=== PATIENT | female | born 1955 | race Two or more races ===

== ENCOUNTER 2017-02-12 14:13 | Inpatient (IN) | payer OTHER ==
[~2017-02-12] VITALS: Ht 162.6 cm; Wt 46.8 kg
--- NOTE | 2017-02-12 14:40 | NUR ---
PT BIB FOR MEDICAL CLEARANE AND POSSIBLE ADMIT TO [facility]. PER FAMILY HAS BECAME MORE AGGRESSIVE AND PSCHYCHOTIC RECENTLY AND CAN NOT BE HANDLED IN THE [facility].
--- NOTE | 2017-02-12 14:42 | NUR ---
DR MATT AT THE BEDSIDE FOR EVAL AND EXAM.
--- NOTE | 2017-02-12 15:10 | NUR ---
PT WAS AGGRESSIVE TOWARD STAFF, ENTRY ANALYST WAS NOT ABLE TO DRAW BLOOD. AWARE.
[2017-02-12] MEDS ORDERED: MULT1TAB11 PO (15:20)
[2017-02-12] MEDS ORDERED: LEVO75TA PO (15:20)
[2017-02-12] MEDS ORDERED: CALC-957 PO (15:20)
[2017-02-12] MEDS ORDERED: RISP1TAB27 PO (15:20)
[2017-02-12] MEDS ORDERED: CHOL100045 PO (15:20)
[2017-02-12] MEDS ORDERED: DIVA250T PO (15:20)
[2017-02-12] MEDS ORDERED: TRAZ150T75 PO (15:20)
--- NOTE | 2017-02-12 16:33 | NUR ---
ATTEMPTED TO DRAW LABS AND COLLECT URINE BUT PT BECOME AGITATED AND CONTRACT BLE AND BUE MAKING IT IMPOSSIBLE.
--- NOTE | 2017-02-12 16:44 | NUR ---
VINI NEWSOME FROM PET AT THE BEDSIDE FOR PSYCH EVAL .
--- NOTE | 2017-02-12 17:00 | NUR ---
[facility] COLEECTED AND SENT TO LAB, BELONGING LIST COMPLETED.
[2017-02-12] MEDS ORDERED: MAGNESIUM HYDROXIDE 30 ML LIQUID UDC PO PRN (18:00)
[2017-02-12] MEDS ORDERED: MAG HYDROX/AL HYDROX/SIMETH 30 ML LIQUID UDC PO PRN (18:00)
--- NOTE | 2017-02-12 19:27 | NUR ---
1345 Admit patient to [facility] from ER per isis placed on 5150 for danger to others and gravely disabled struck resident from the SNF. Upon admission patient is combative, agitated and aggressive. Admission care done. Dr. Pitt and Dr. Tomas notified of the admission.notified of the admission
[2017-02-12] MEDS: ACETAMINOPHEN 325 MG TABLET PO PRN (20:16)
[2017-02-12] MEDS: TEMAZEPAM 7.5 MG CAPSULE PO PRN (20:16)
[2017-02-12 20:17] VITALS: BP 117/70
[2017-02-12] MEDS ORDERED: OLANZAPINE ZYDIS 5 MG TAB.RAPDIS PO SCH (21:00)
--- NOTE | 2017-02-12 22:00 | NUR ---
received to care, up in travis chair, appearing restless, and anxious. PO fluids ,and snack given. PRN restoril was given at 2015, and, as of 2199, she remains awake. assisted with PM care, and diaper change. pt required 3 staff to change her, as she is resistive to care. currently up in travis chair, at nurses station. no distress noted. will continue to monitor closely.
[2017-02-12] MEDS: LORAZEPAM 0.5 MG TABLET PO PRN (23:10)
--- NOTE | 2017-02-12 23:10 | NUR ---
remains awake, and restless. PRN ativan was given, at this time.
--- NOTE | 2017-02-12 23:50 | NUR ---
appears calmer, now. assisted to bed, with bed alarm, on.
--- NOTE | 2017-02-13 00:15 | NUR ---
appears to be asleep. no distress noted. will continue to monitor closely.
[2017-02-13] MEDS: ACETAMINOPHEN 325 MG TABLET PO PRN (05:23)
[2017-02-13] MEDS: LORAZEPAM 0.5 MG TABLET PO PRN (05:23)
--- NOTE | 2017-02-13 05:23 | NUR ---
pt slept 1.5 hours, total. remains restless. PRN ativan was given, at this time.
[2017-02-13] MEDS ORDERED: LEVOTHYROXINE SODIUM 75 MCG TABLET PO SCH ×2 (07:24→09:00)
[2017-02-13 07:30] VITALS: BP 124/79
[2017-02-13 07:57] LABS: THYROID STIMULATING HORMONE 15.043 mIU/mL (0.358-3.740)
[2017-02-13 08:24] LABS: BILIRUBIN,TOTAL 0.3 mg/dL (0.2-1.0); CREATININE 0.9 mg/dL (0.6-1.3); PHOSPHOROUS 3.2 mg/dL (2.5-4.9); POTASSIUM 3.9 mmol/L (3.5-5.1); TOTAL PROTEIN, SERUM 6.9 g/dL (6.4-8.2)
[2017-02-13] MEDS ORDERED: Medication Not On Formulary EA (Multivitamins W-Minerals (Multivitamin With Minerals) 1 PO SCH (09:00)
[2017-02-13] MEDS: CHOLECALCIFEROL 1,000 UNIT TABLET PO SCH (09:29)
[2017-02-13] MEDS: CALCIUM CARB/VITAMIN D 600-400 MG TABLET PO SCH ×2 (09:29→17:39)
[2017-02-13] MEDS: MULTIVIT, IRON, MIN NO. 8, FA TABLET PO SCH (09:29)
[2017-02-13 15:00] VITALS: BP 106/73
--- NOTE | 2017-02-13 16:27 | NUR ---
Initial discharge instructions: The patient resides at [facility] [[address] , [place] [address] ]. ITZ has called the facility and left a message for admissions to see if they will be accepting the patient back upon discharge. ITZ spoke with the patient's who stated that he would like for the patient to return to the facility upon discharge. ITZ will speak with the family and MD regarding the most appropriate discharge plan. SS will form a safe and proper discharge.
[2017-02-13] MEDS: DIVALPROEX SPRINKLE 125 MG CAP.SPRINK PO SCH (17:39)
[2017-02-13] MEDS: BENZTROPINE MESYLATE 0.5 MG TABLET PO SCH (17:39)
[2017-02-13] MEDS: risperiDONE-M 0.5 MG TAB.RAPDIS PO SCH (17:39)
[2017-02-13 20:36] VITALS: BP 120/89
[2017-02-14 07:30] VITALS: BP 100/52
[2017-02-14 07:43] LABS: BASOPHILS % (AUTO) 0.6 % (0.0-2.0); EOSINOPHILS # (AUTO) 0.2 K/uL (0.0-0.7); EOSINOPHILS % (AUTO) 2.7 % (0.0-7.0); HEMATOCRIT 38.7 % (37-47); HEMOGLOBIN 13.2 G/DL (12.0-16.0); LYMPHOCYTES # (AUTO) 1.9 K/UL (0.8-4.8); LYMPHOCYTES % (AUTO) 26.9 % (20.5-51.5); MEAN CORPUSCULAR HEMOGLOBIN 30.9 UUG (27.0-31.0); MEAN CORPUSCULAR HGB CONC 34 g/dL (32.0-37.0); MEAN CORPUSCULAR VOLUME 90.7 FL (81.0-99.0); MONOCYTES # (AUTO) 1.1 K/UL (0.1-1.30); MONOCYTES % (AUTO) 15.9 % (0.0-11.0); NEUTROPHILS # (AUTO) 3.8 K/UL (1.8-8.9); NEUTROPHILS % (AUTO) 53.9 % (38.5-71.5); PLATELET COUNT (AUTO) 208 K/UL (150-450); RED BLOOD CELL COUNT(AUTO) 4.27 MIL/UL (4.2-5.4)
[2017-02-14 07:55] LABS: BILIRUBIN,TOTAL 0.4 mg/dL (0.2-1.0); CREATININE 0.8 mg/dL (0.6-1.3); MAGNESIUM 2.2 mg/dL (1.8-2.4); POTASSIUM 5.2 mmol/L (3.5-5.1); TOTAL PROTEIN, SERUM 6.7 g/dL (6.4-8.2)
[2017-02-14 08:08] LABS: THYROID STIMULATING HORMONE 8.76 mIU/mL (0.358-3.740)
[2017-02-14 08:54] LABS: EOSINOPHILS % (MANUAL) 2 % (0-8); LYMPHOCYTES % (MANUAL) 24 % (20-40); MONOCYTES % (MANUAL) 12 % (2-10); NEUTROPHILS % (MANUAL) 62 % (42-75)
[2017-02-14] MEDS: MULTIVIT, IRON, MIN NO. 8, FA TABLET PO SCH (11:58)
[2017-02-14] MEDS: CALCIUM CARB/VITAMIN D 600-400 MG TABLET PO SCH ×2 (11:58→16:53)
[2017-02-14] MEDS: risperiDONE-M 0.5 MG TAB.RAPDIS PO SCH ×3 (11:58→16:53)
[2017-02-14] MEDS: DIVALPROEX SPRINKLE 125 MG CAP.SPRINK PO SCH ×3 (11:58→16:53)
[2017-02-14] MEDS: CHOLECALCIFEROL 1,000 UNIT TABLET PO SCH (11:58)
[2017-02-14] MEDS: BENZTROPINE MESYLATE 0.5 MG TABLET PO SCH ×2 (11:59→16:53)
--- NOTE | 2017-02-14 14:18 | NUR ---
UR Note: ITZ spoke with IPA: CARLOS ESPINAL PH: [phone] FAX # [phone] Authorization : [id number] / 7 DAYS APPROVED from admission.
[2017-02-14 15:00] VITALS: BP 113/67
[2017-02-14 20:57] VITALS: BP 107/84
[2017-02-15] MEDS: LEVOTHYROXINE SODIUM 88 MCG TABLET PO SCH (06:11)
--- NOTE | 2017-02-15 06:49 | NUR ---
GPS: PATIENT REMAIN CALM AND COOPERATIVE. SLEPT 7 HRS THROUGH THE NIGHT. COMPLIANT WITH AM PO MEDS. SHOWERED THIS MORNING. PATIENT RESISTIVE TO CARE WHILE GIVING SHOWER THIS MORNING. CONTINUE PLAN OF CARE.
[2017-02-15 07:30] VITALS: BP 112/64
[2017-02-15] MEDS: LORAZEPAM 0.5 MG TABLET PO PRN (08:20)
[2017-02-15] MEDS: CHOLECALCIFEROL 1,000 UNIT TABLET PO SCH (08:51)
[2017-02-15] MEDS: CALCIUM CARB/VITAMIN D 600-400 MG TABLET PO SCH ×2 (08:51→16:12)
[2017-02-15] MEDS: risperiDONE-M 0.5 MG TAB.RAPDIS PO SCH ×3 (08:51→16:12)
[2017-02-15] MEDS: BENZTROPINE MESYLATE 0.5 MG TABLET PO SCH ×2 (08:51→16:12)
[2017-02-15] MEDS: MULTIVIT, IRON, MIN NO. 8, FA TABLET PO SCH (08:51)
[2017-02-15] MEDS: DIVALPROEX SPRINKLE 125 MG CAP.SPRINK PO SCH ×3 (08:51→16:12)
[2017-02-15 16:35] VITALS: BP 99/65
[2017-02-15] MEDS: ACETAMINOPHEN 325 MG TABLET PO PRN (16:43)
[2017-02-15 20:59] VITALS: BP 119/74
--- NOTE | 2017-02-16 06:33 | NUR ---
Patient slept 7 hrs through the night. She continue resisting care. She kicked and attempted to scratch staff while providing care. Verbal redirection given x 3 yet ineffective. Continue non-verbal. we will continue to monitor.
[2017-02-16] MEDS: LEVOTHYROXINE SODIUM 88 MCG TABLET PO SCH (06:47)
[2017-02-16 07:47] LABS: BASOPHILS % (AUTO) 0.7 % (0.0-2.0); EOSINOPHILS # (AUTO) 0.3 K/uL (0.0-0.7); EOSINOPHILS % (AUTO) 4.8 % (0.0-7.0); HEMATOCRIT 39.6 % (37-47); LYMPHOCYTES # (AUTO) 2.2 K/UL (0.8-4.8); LYMPHOCYTES % (AUTO) 37.2 % (20.5-51.5); MEAN CORPUSCULAR HGB CONC 33 g/dL (32.0-37.0); MEAN CORPUSCULAR VOLUME 91.3 FL (81.0-99.0); MONOCYTES # (AUTO) 0.9 K/UL (0.1-1.30); MONOCYTES % (AUTO) 14.9 % (0.0-11.0); NEUTROPHILS # (AUTO) 2.6 K/UL (1.8-8.9); NEUTROPHILS % (AUTO) 42.4 % (38.5-71.5); PLATELET COUNT (AUTO) 235 K/UL (150-450); RED BLOOD CELL COUNT(AUTO) 4.34 MIL/UL (4.2-5.4)
[2017-02-16 07:54] LABS: BILIRUBIN,TOTAL 0.4 mg/dL (0.2-1.0); CREATININE 0.9 mg/dL (0.6-1.3); POTASSIUM 5.7 mmol/L (3.5-5.1); TOTAL PROTEIN, SERUM 6.9 g/dL (6.4-8.2)
[2017-02-16] MEDS: LORAZEPAM 0.5 MG TABLET PO PRN ×3 (08:15→22:56)
[2017-02-16] MEDS ORDERED: SODIUM POLYSTYRENE SULFONATE 15 G/60 ML LIQUID UDC PO ONE (08:30)
[2017-02-16] MEDS: MULTIVIT, IRON, MIN NO. 8, FA TABLET PO SCH (09:24)
[2017-02-16] MEDS: BENZTROPINE MESYLATE 0.5 MG TABLET PO SCH ×2 (09:24→16:38)
[2017-02-16] MEDS: DIVALPROEX SPRINKLE 125 MG CAP.SPRINK PO SCH ×3 (09:24→16:38)
[2017-02-16] MEDS: CHOLECALCIFEROL 1,000 UNIT TABLET PO SCH (09:24)
[2017-02-16] MEDS: risperiDONE-M 0.5 MG TAB.RAPDIS PO SCH ×3 (09:24→16:38)
[2017-02-16] MEDS: CALCIUM CARB/VITAMIN D 600-400 MG TABLET PO SCH ×2 (09:24→16:38)
--- NOTE | 2017-02-16 14:37 | NUR ---
GPS: Nursing Notes: Destructive Behavior Toward Others: Patient is awake and responding to her name by looking when calling her name, selectively mute, paranoid behavior, angry affect, striking out at staff when assisting her with ADL's, refused to eat her lunch, throw her tray at staff, poor impulse control, poor anger management, episodes of scratching and kicking staff when changing her wet diaper, redirected and reoriented, but unable to understand, continue to be aggressive when helping her with ADL's, unable to formulate a plan for self care, continue with treatment plan.
[2017-02-16 16:00] VITALS: BP 118/82
[2017-02-16 20:00] VITALS: BP 126/80
--- NOTE | 2017-02-16 22:57 | NUR ---
GPS: PATIENT IS VERY AGITATED BANGING ON SIDE TABLE. ATIVAN 0.5 MG PO GIVEN.
--- NOTE | 2017-02-16 23:58 | NUR ---
GPS: PATIENT IS CALM NOW. PRN EFFECTIVE FOR ANXIETY.
[2017-02-17] MEDS: LEVOTHYROXINE SODIUM 88 MCG TABLET PO SCH (06:06)
--- NOTE | 2017-02-17 06:11 | NUR ---
GPS: REMAIN COOPERATIVE WITH MEDS. RESISTIVE TO CARE WHILE PROVIDED ADL'S. SLEPT 7 HRS THROUGH THE NIGHT.CONTINUE MONITOR FOR SAFETY.
[2017-02-17 07:50] VITALS: BP 130/87
[2017-02-17] MEDS: risperiDONE-M 0.5 MG TAB.RAPDIS PO SCH ×3 (08:48→16:31)
[2017-02-17] MEDS: LORAZEPAM 0.5 MG TABLET PO PRN (08:48)
[2017-02-17] MEDS: CALCIUM CARB/VITAMIN D 600-400 MG TABLET PO SCH ×2 (08:48→16:31)
[2017-02-17] MEDS: DIVALPROEX SPRINKLE 125 MG CAP.SPRINK PO SCH ×3 (08:48→16:31)
[2017-02-17] MEDS: MULTIVIT, IRON, MIN NO. 8, FA TABLET PO SCH (08:48)
[2017-02-17] MEDS: BENZTROPINE MESYLATE 0.5 MG TABLET PO SCH ×3 (08:48→16:31)
[2017-02-17] MEDS: CHOLECALCIFEROL 1,000 UNIT TABLET PO SCH (08:48)
[2017-02-17] MEDS ORDERED: MAGNESIUM HYDROXIDE 30 ML LIQUID UDC PO ONE (11:00)
[2017-02-17] MEDS: DOCUSATE SODIUM 100 MG CAPSULE PO SCH ×2 (11:14→21:08)
[2017-02-17] MEDS ORDERED: BISACODYL 10 MG SUPP.RECT RC PRN (15:30)
--- NOTE | 2017-02-17 16:32 | NUR ---
UR Note: ITZ faxed most recent clinicals to [facility]INAL PH: [phone] FAX # [phone] Authorization : [id number]
[2017-02-17 16:44] VITALS: BP 115/73
[2017-02-17] MEDS: TEMAZEPAM 7.5 MG CAPSULE PO PRN (21:09)
[2017-02-17 21:27] VITALS: BP 114/71
--- NOTE | 2017-02-17 22:00 | NUR ---
received to care, up in travis chair, appearing restless, at times, in no acute distress. compliant with medications, care rendered, toileting, food, and fluids. PRN restoril was given at 2108, along with PRN milk of magnesia. as of 2199, she is asleep, in bed. no distress noted. will continue to monitor closely.
--- NOTE | 2017-02-18 06:00 | NUR ---
slept 7 hours, total. continues to sleep. easy to awaken. no distress noted.
[2017-02-18] MEDS: LEVOTHYROXINE SODIUM 88 MCG TABLET PO SCH (06:31)
[2017-02-18 07:30] VITALS: BP 111/65
[2017-02-18] MEDS: CALCIUM CARB/VITAMIN D 600-400 MG TABLET PO SCH ×2 (08:28→16:53)
[2017-02-18] MEDS: DOCUSATE SODIUM 100 MG CAPSULE PO SCH ×2 (08:28→21:00)
[2017-02-18] MEDS: BENZTROPINE MESYLATE 0.5 MG TABLET PO SCH ×3 (08:28→16:53)
[2017-02-18] MEDS: DIVALPROEX SPRINKLE 125 MG CAP.SPRINK PO SCH ×3 (08:28→16:52)
[2017-02-18] MEDS: MULTIVIT, IRON, MIN NO. 8, FA TABLET PO SCH (08:28)
[2017-02-18] MEDS: CHOLECALCIFEROL 1,000 UNIT TABLET PO SCH (08:28)
[2017-02-18] MEDS: risperiDONE-M 0.5 MG TAB.RAPDIS PO SCH ×3 (08:28→16:53)
[2017-02-18] MEDS: LORAZEPAM 0.5 MG TABLET PO PRN (12:28)
[2017-02-18 15:27] VITALS: BP_SYST 113; BP_SYST 114; BP_DIAS 71; BP_DIAS 72
--- NOTE | 2017-02-18 16:22 | NUR ---
UR Note: ITZ faxed most recent clinicals to CARL[facility] ESPINAL PH: [phone] FAX # [phone] Authorization : [id number]
[2017-02-18 20:00] VITALS: BP 101/63
--- NOTE | 2017-02-18 21:05 | NUR ---
PT RECEIVED ON HER BED SLEEPING,NO DISTRESS NOTED, UNABLE TO ASSESS BEHAVIOR AT THIS TIME, WILL CONTINUE TO MONITOR.
[2017-02-19] MEDS: TEMAZEPAM 7.5 MG CAPSULE PO PRN (02:03)
[2017-02-19] MEDS: LORAZEPAM 0.5 MG TABLET PO PRN (04:15)
[2017-02-19] MEDS: LEVOTHYROXINE SODIUM 88 MCG TABLET PO SCH (06:46)
--- NOTE | 2017-02-19 06:58 | NUR ---
pt had very large bowel movement this AM, Dulcolax supp. was effective., Also showered, PT remains very resistive to care, will continue to monitor closely.
[2017-02-19 07:30] VITALS: BP 123/69
[2017-02-19 08:22] LABS: CREATININE 0.7 mg/dL (0.6-1.3); POTASSIUM 4.8 mmol/L (3.5-5.1)
[2017-02-19] MEDS: risperiDONE-M 0.5 MG TAB.RAPDIS PO SCH ×3 (08:58→18:03)
[2017-02-19] MEDS: DOCUSATE SODIUM 100 MG CAPSULE PO SCH ×2 (08:59→20:52)
[2017-02-19] MEDS: CALCIUM CARB/VITAMIN D 600-400 MG TABLET PO SCH ×2 (08:59→18:03)
[2017-02-19] MEDS: DIVALPROEX SPRINKLE 125 MG CAP.SPRINK PO SCH ×3 (08:59→18:04)
[2017-02-19] MEDS: MULTIVIT, IRON, MIN NO. 8, FA TABLET PO SCH (08:59)
[2017-02-19] MEDS: CHOLECALCIFEROL 1,000 UNIT TABLET PO SCH (08:59)
[2017-02-19] MEDS: BENZTROPINE MESYLATE 0.5 MG TABLET PO SCH ×3 (08:59→18:04)
--- NOTE | 2017-02-19 09:52 | NUR ---
RECEIVED PATIENT UP IN [facility] AND SELECTIVELY MUTE WITH A BLANK SANDRA. PATIENT REFUSED LAB S TO BE DRAWN AFTER TWO TRYS, WHILE HOLDING PATIENT SHE ATTEMPTED TO SCRATCH STAFF , PATIENT INCONTINENT OF STOOL FIGHTING NOT TOO NOT GET OUT OF CHAIR TO BE CHANGED ANSD CLEANED SCRATCHING AT STAFF , PULLIMG AWAY NOT ACCEPTING HELP WITH SAFETY MEASURES , PT DRIED AND CLEANED WITH RESISTENCE. CONTINUE TO PROVIDE A SAFE AND CLEAN AREA FOR PATIENT
[2017-02-19] MEDS: QUETIAPINE FUMARATE 25 MG TABLET PO SCH ×3 (12:42→13:11)
[2017-02-19] MEDS: OLANZAPINE ZYDIS 5 MG TAB.RAPDIS PO SCH ×2 (14:02→20:53)
--- NOTE | 2017-02-19 14:20 | NUR ---
UR Note: ITZ faxed most recent clinicals to Nanda ESPINAL [PH: [phone] FAX # [phone]]. Spoke with JING SOOD who stated that the patient has been authorized through 02/22/17 with review due on 02/21/17. Authorization: [id number]
[2017-02-19 16:00] VITALS: BP 123/68
[2017-02-19] MEDS ORDERED: QUETIAPINE FUMARATE 25 MG TABLET PO SCH (17:00)
--- NOTE | 2017-02-19 18:31 | NUR ---
patient still with unpredictable behavior in travis chair all shift, now in dayroom being fed by appeared less anxiuous continue to monitor for safety
[2017-02-19 19:58] VITALS: BP 102/60
[2017-02-19] MEDS ORDERED: ENOXAPARIN SODIUM 40 MG/0.4 ML DISP.SYRIN SQ SCH (22:00)
--- NOTE | 2017-02-19 22:01 | NUR ---
PT RECIEVED IN HER ROOM SLEEPING, NO DISTRESS NOTED, UNABLE TO GIVE BEDTIME MEDS, WILL CONTINUE TO MONITOR CLOSELY.
[2017-02-20] MEDS: LEVOTHYROXINE SODIUM 88 MCG TABLET PO SCH (07:04)
[2017-02-20] MEDS: PANTOPRAZOLE SODIUM 40 MG TABLET.DR PO SCH (07:04)
[2017-02-20] MEDS ORDERED: PANTOPRAZOLE SODIUM 40 MG TABLET.DR PO ONE (07:10)
[2017-02-20 07:30] VITALS: BP 125/73
[2017-02-20] MEDS: MULTIVIT, IRON, MIN NO. 8, FA TABLET PO SCH (09:00)
[2017-02-20] MEDS: risperiDONE-M 0.5 MG TAB.RAPDIS PO SCH ×2 (09:00→13:33)
[2017-02-20] MEDS: CALCIUM CARB/VITAMIN D 600-400 MG TABLET PO SCH ×2 (09:00→17:08)
[2017-02-20] MEDS: BENZTROPINE MESYLATE 0.5 MG TABLET PO SCH ×2 (09:00→13:33)
[2017-02-20] MEDS: CHOLECALCIFEROL 1,000 UNIT TABLET PO SCH (09:00)
[2017-02-20] MEDS: DOCUSATE SODIUM 100 MG CAPSULE PO SCH ×2 (09:00→20:14)
[2017-02-20] MEDS: OLANZAPINE ZYDIS 5 MG TAB.RAPDIS PO SCH ×3 (09:00→20:14)
[2017-02-20] MEDS: ENOXAPARIN SODIUM 40 MG/0.4 ML DISP.SYRIN SQ SCH (09:00)
[2017-02-20] MEDS: DIVALPROEX SPRINKLE 125 MG CAP.SPRINK PO SCH ×3 (09:00→17:09)
[2017-02-20] MEDS: LORAZEPAM 0.5 MG TABLET PO PRN ×2 (14:10→19:48)
[2017-02-20 16:00] VITALS: BP 111/71
--- NOTE | 2017-02-20 19:58 | NUR ---
GPS: PATIENT IS VERY AGITATED.BANGING ON MOY CHAIR TABLE. ATIVAN 1 MG PO GIVEN FOR AGITATION.
[2017-02-20 20:00] VITALS: BP 129/87
[2017-02-20 21:28] LABS: *BILIRUBIN,URIN NEGATIVE (NEGATIVE); *BLOOD, URINE NEGATIVE (NEGATIVE); *COLOR,URINE YELLOW (YELLOW); *KETONES,URINE TRACE (NEGATIVE); *PROTEIN,URINE NEGATIVE (NEGATIVE); *UROBILINOGEN,URINE 0.2 E.U./dl (NORMAL); LEUKOCYTE ESTERASE ,URINE NEGATIVE (NEGATIVE); NITRITE, URINE NEGATIVE (NEGATIVE); PH,URINE 5.5 (5.0-8.0); UGLUCOSE NEGATIVE (NEGATIVE)
[2017-02-20 21:38] LABS: *CLARITY,URINE SLIGHTLY HAZY (CLEAR); RBC,URINE 0-3 /HPF (0-3); SQUAMOUS EPITHELIAL CELL,UR FEW /HPF (NONE SEEN); WBC,URINE 0-3 /HPF (0-3)
[2017-02-20 21:39] LABS: MUCUS,URINE MANY /LPF (0-FEW); URINE AMORPHOUS URATE MODERATE /HPF
[2017-02-20 23:03] VITALS: BP 129/87
[2017-02-20] MEDS: TEMAZEPAM 7.5 MG CAPSULE PO PRN (23:30)
--- NOTE | 2017-02-20 23:34 | NUR ---
GPS: PATIENT UNABLE TO SLEEP. RESTORIL 7.5 MG PO GIVEN.
--- NOTE | 2017-02-21 00:35 | NUR ---
GPS: PATIENT SLEEPING EYE CLOSE. PRN EFFECTIVE FOR SLEEP.
[2017-02-21] MEDS: LEVOTHYROXINE SODIUM 88 MCG TABLET PO SCH (06:25)
[2017-02-21] MEDS: PANTOPRAZOLE SODIUM 40 MG TABLET.DR PO SCH (06:26)
--- NOTE | 2017-02-21 06:56 | NUR ---
GPS: REMAIN UNCOOPERATIVE WITH CARE. COMPLIANT WITH MEDS. SHOWERED THIS MORNING. SLEPT 7 HRS THROUGH THE NIGHT.
[2017-02-21 07:30] VITALS: BP 137/82
[2017-02-21 07:49] LABS: MAGNESIUM 2.2 mg/dL (1.8-2.4); PHOSPHOROUS 3.6 mg/dL (2.5-4.9)
[2017-02-21 07:53] LABS: BASOPHILS % (AUTO) 0.7 % (0.0-2.0); EOSINOPHILS # (AUTO) 0.3 K/uL (0.0-0.7); EOSINOPHILS % (AUTO) 5.6 % (0.0-7.0); HEMATOCRIT 40.8 % (37-47); HEMOGLOBIN 13.7 G/DL (12.0-16.0); LYMPHOCYTES # (AUTO) 2.5 K/UL (0.8-4.8); LYMPHOCYTES % (AUTO) 42.2 % (20.5-51.5); MEAN CORPUSCULAR HEMOGLOBIN 30.5 UUG (27.0-31.0); MEAN CORPUSCULAR HGB CONC 34 g/dL (32.0-37.0); MEAN CORPUSCULAR VOLUME 91.1 FL (81.0-99.0); MONOCYTES # (AUTO) 0.7 K/UL (0.1-1.30); MONOCYTES % (AUTO) 12.3 % (0.0-11.0); NEUTROPHILS # (AUTO) 2.3 K/UL (1.8-8.9); NEUTROPHILS % (AUTO) 39.2 % (38.5-71.5); PLATELET COUNT (AUTO) 238 K/UL (150-450); RED BLOOD CELL COUNT(AUTO) 4.48 MIL/UL (4.2-5.4); WHITE BLOOD COUNT (AUTO) 5.8 K/UL (4.0-11.2)
[2017-02-21] MEDS: CALCIUM CARB/VITAMIN D 600-400 MG TABLET PO SCH ×2 (08:22→17:40)
[2017-02-21] MEDS: OLANZAPINE ZYDIS 5 MG TAB.RAPDIS PO SCH ×3 (08:22→21:10)
[2017-02-21] MEDS: DIVALPROEX SPRINKLE 125 MG CAP.SPRINK PO SCH ×3 (08:23→17:40)
[2017-02-21] MEDS: MULTIVIT, IRON, MIN NO. 8, FA TABLET PO SCH (08:23)
[2017-02-21] MEDS: CHOLECALCIFEROL 1,000 UNIT TABLET PO SCH (08:23)
[2017-02-21] MEDS: DOCUSATE SODIUM 100 MG CAPSULE PO SCH ×2 (08:23→21:10)
[2017-02-21] MEDS: ENOXAPARIN SODIUM 40 MG/0.4 ML DISP.SYRIN SQ SCH (08:25)
[2017-02-21] MEDS: LORAZEPAM 0.5 MG TABLET PO PRN (10:49)
--- NOTE | 2017-02-21 12:31 | NUR ---
UR Note: ITZ faxed most recent clinicals to Nanda ESPINAL [PH: [phone]/ FAX # [phone]]. Spoke with JING SOOD who stated that the patient has been authorized through 02/24/17 with review due on Friday02/25/17. Authorization:[id number]
[2017-02-21] MEDS: LITHIUM CARBONATE 300 MG TABLET PO SCH ×2 (12:48→21:10)
[2017-02-21] MEDS: QUETIAPINE FUMARATE 25 MG TABLET PO SCH ×3 (12:48→17:40)
[2017-02-21 17:05] VITALS: BP 122/84
[2017-02-21 20:14] VITALS: BP 115/60
--- NOTE | 2017-02-22 05:38 | NUR ---
GPS: Pt. now awake at this time. Combative/resistive and attempting to bite staff during incontinence care. Re-directed and re-assured prn. Safety emphasized. Will continue to monitor.
[2017-02-22] MEDS: LEVOTHYROXINE SODIUM 88 MCG TABLET PO SCH (06:15)
[2017-02-22] MEDS: PANTOPRAZOLE SODIUM 40 MG TABLET.DR PO SCH (06:15)
[2017-02-22 07:30] VITALS: BP 144/77
[2017-02-22] MEDS: DOCUSATE SODIUM 100 MG CAPSULE PO SCH ×2 (08:21→20:08)
[2017-02-22] MEDS: LITHIUM CARBONATE 300 MG TABLET PO SCH (08:21)
[2017-02-22] MEDS: DIVALPROEX SPRINKLE 125 MG CAP.SPRINK PO SCH ×3 (08:21→17:13)
[2017-02-22] MEDS: OLANZAPINE ZYDIS 5 MG TAB.RAPDIS PO SCH (08:22)
[2017-02-22] MEDS: CALCIUM CARB/VITAMIN D 600-400 MG TABLET PO SCH ×2 (08:22→17:14)
[2017-02-22] MEDS: CHOLECALCIFEROL 1,000 UNIT TABLET PO SCH (08:22)
[2017-02-22] MEDS: QUETIAPINE FUMARATE 25 MG TABLET PO SCH (08:22)
[2017-02-22] MEDS: MULTIVIT, IRON, MIN NO. 8, FA TABLET PO SCH (08:22)
[2017-02-22] MEDS: ENOXAPARIN SODIUM 40 MG/0.4 ML DISP.SYRIN SQ SCH (09:00)
[2017-02-22] MEDS ORDERED: LORAZEPAM 0.5 MG TABLET PO PRN (12:30)
[2017-02-22] MEDS ORDERED: LORAZEPAM 1 MG TABLET PO PRN (12:30)
[2017-02-22] MEDS: HALOPERIDOL 5 MG TABLET PO SCH ×2 (12:58→17:13)
[2017-02-22] MEDS: BENZTROPINE MESYLATE 1 MG TABLET PO SCH ×2 (12:58→17:13)
[2017-02-22 15:07] VITALS: BP 130/75
[2017-02-22 20:02] VITALS: BP 104/69
[2017-02-23] MEDS: LEVOTHYROXINE SODIUM 88 MCG TABLET PO SCH (06:24)
[2017-02-23] MEDS: PANTOPRAZOLE SODIUM 40 MG TABLET.DR PO SCH (06:24)
[2017-02-23 07:30] VITALS: BP 105/60
[2017-02-23] MEDS: BENZTROPINE MESYLATE 1 MG TABLET PO SCH ×3 (08:27→16:43)
[2017-02-23] MEDS: CALCIUM CARB/VITAMIN D 600-400 MG TABLET PO SCH ×2 (08:28→16:43)
[2017-02-23] MEDS: DOCUSATE SODIUM 100 MG CAPSULE PO SCH ×2 (08:28→20:05)
[2017-02-23] MEDS: CHOLECALCIFEROL 1,000 UNIT TABLET PO SCH (08:28)
[2017-02-23] MEDS: ENOXAPARIN SODIUM 40 MG/0.4 ML DISP.SYRIN SQ SCH (08:28)
[2017-02-23] MEDS: MULTIVIT, IRON, MIN NO. 8, FA TABLET PO SCH (08:28)
[2017-02-23] MEDS: HALOPERIDOL 5 MG TABLET PO SCH ×2 (08:28→13:05)
[2017-02-23] MEDS: DIVALPROEX SPRINKLE 125 MG CAP.SPRINK PO SCH ×3 (08:28→16:44)
[2017-02-23] MEDS ORDERED: CARBAMAZEPINE 200 MG TABLET PO SCH (13:30)
[2017-02-23] MEDS: CARBAMAZEPINE 100 MG TAB.CHEW PO SCH ×2 (13:37→16:43)
[2017-02-23] MEDS: chlorproMAZINE 25 MG TABLET PO SCH ×2 (13:42→16:43)
[2017-02-23 15:15] VITALS: BP 110/69
[2017-02-23 20:02] VITALS: BP 127/80
--- NOTE | 2017-02-23 20:05 | NUR ---
GPS: Pt.is agitated and attempting to bite and kick at staff while care is being rendered. Unable to be re-directed. No s/s of pain observed. Thorazine 10mg given PO for agitation. Will monitor effectiveness of med. Re-directed prn. Safety emphasized.
[2017-02-23] MEDS ORDERED: chlorproMAZINE 25 MG TABLET PO STA (20:56)
--- NOTE | 2017-02-23 21:05 | NUR ---
GPS: Received orders from to give Thorazine 25mg PO stat. Pt.remains agitated,banging on the gerichair table and attempting to grab whoever passes by her. Thorazine 25mg given PO and taken by pt. Will monitor effectiveness of med and for over sedation.
[2017-02-24] MEDS: LEVOTHYROXINE SODIUM 88 MCG TABLET PO SCH (06:48)
[2017-02-24] MEDS: PANTOPRAZOLE SODIUM 40 MG TABLET.DR PO SCH (06:48)
[2017-02-24 07:19] LABS: POTASSIUM 5.5 mmol/L (3.5-5.1)
[2017-02-24 07:30] VITALS: BP 112/64
[2017-02-24] MEDS: DOCUSATE SODIUM 100 MG CAPSULE PO SCH ×2 (07:38→20:29)
[2017-02-24] MEDS: CARBAMAZEPINE 100 MG TAB.CHEW PO SCH ×3 (07:38→16:37)
[2017-02-24] MEDS: DIVALPROEX SPRINKLE 125 MG CAP.SPRINK PO SCH (07:38)
[2017-02-24] MEDS: MULTIVIT, IRON, MIN NO. 8, FA TABLET PO SCH (07:38)
[2017-02-24] MEDS: CALCIUM CARB/VITAMIN D 600-400 MG TABLET PO SCH ×2 (07:39→16:37)
[2017-02-24] MEDS: CHOLECALCIFEROL 1,000 UNIT TABLET PO SCH (07:39)
[2017-02-24] MEDS: BENZTROPINE MESYLATE 1 MG TABLET PO SCH ×3 (07:39→16:37)
[2017-02-24] MEDS: ENOXAPARIN SODIUM 40 MG/0.4 ML DISP.SYRIN SQ SCH (08:15)
[2017-02-24] MEDS ORDERED: chlorproMAZINE 25 MG TABLET PO ONE (09:15)
[2017-02-24] MEDS ORDERED: CLONAZEPAM 0.5 MG TABLET PO SCH (10:00)
--- NOTE | 2017-02-24 12:15 | NUR ---
Dr. Ranjan Anderson notified regarding patient potassuim level result 5.5 spoke with MD he will check on it .
[2017-02-24] MEDS: chlorproMAZINE 25 MG TABLET PO SCH ×2 (13:16→16:37)
[2017-02-24] MEDS: CLONAZEPAM 0.5 MG TABLET PO SCH ×2 (13:16→16:37)
[2017-02-24 17:03] VITALS: BP 99/65
[2017-02-24 20:00] VITALS: BP 109/77
[2017-02-24] MEDS ORDERED: DIVALPROEX SPRINKLE 125 MG CAP.SPRINK PO SCH (21:00)
[2017-02-25] MEDS: PANTOPRAZOLE SODIUM 40 MG TABLET.DR PO SCH (06:13)
[2017-02-25] MEDS: LEVOTHYROXINE SODIUM 88 MCG TABLET PO SCH (06:13)
[2017-02-25 07:30] VITALS: BP 137/82
[2017-02-25] MEDS: ENOXAPARIN SODIUM 40 MG/0.4 ML DISP.SYRIN SQ SCH (09:00)
[2017-02-25] MEDS: DOCUSATE SODIUM 100 MG CAPSULE PO SCH ×2 (09:12→20:41)
[2017-02-25] MEDS: BENZTROPINE MESYLATE 1 MG TABLET PO SCH ×3 (09:12→16:54)
[2017-02-25] MEDS: chlorproMAZINE 25 MG TABLET PO SCH ×3 (09:12→16:54)
[2017-02-25] MEDS: SERTRALINE HCL 50 MG TABLET PO SCH (09:12)
[2017-02-25] MEDS: MULTIVIT, IRON, MIN NO. 8, FA TABLET PO SCH (09:12)
[2017-02-25] MEDS: CALCIUM CARB/VITAMIN D 600-400 MG TABLET PO SCH ×2 (09:12→16:54)
[2017-02-25] MEDS: CLONAZEPAM 0.5 MG TABLET PO SCH ×3 (09:12→16:54)
[2017-02-25] MEDS: CARBAMAZEPINE 100 MG TAB.CHEW PO SCH ×3 (09:12→16:54)
[2017-02-25] MEDS: CHOLECALCIFEROL 1,000 UNIT TABLET PO SCH (09:12)
[2017-02-25 12:48] LABS: BASOPHILS % (AUTO) 0.5 % (0.0-2.0); EOSINOPHILS # (AUTO) 0.2 K/uL (0.0-0.7); EOSINOPHILS % (AUTO) 3.6 % (0.0-7.0); HEMATOCRIT 38.9 % (37-47); HEMOGLOBIN 13.2 G/DL (12.0-16.0); LYMPHOCYTES # (AUTO) 1.3 K/UL (0.8-4.8); LYMPHOCYTES % (AUTO) 24.5 % (20.5-51.5); MEAN CORPUSCULAR HEMOGLOBIN 31.1 UUG (27.0-31.0); MEAN CORPUSCULAR HGB CONC 34 g/dL (32.0-37.0); MEAN CORPUSCULAR VOLUME 91.2 FL (81.0-99.0); MONOCYTES # (AUTO) 0.5 K/UL (0.1-1.30); MONOCYTES % (AUTO) 9.1 % (0.0-11.0); NEUTROPHILS # (AUTO) 3.1 K/UL (1.8-8.9); NEUTROPHILS % (AUTO) 62.3 % (38.5-71.5); PLATELET COUNT (AUTO) 205 K/UL (150-450); RED BLOOD CELL COUNT(AUTO) 4.26 MIL/UL (4.2-5.4); WHITE BLOOD COUNT (AUTO) 5.1 K/UL (4.0-11.2)
[2017-02-25 12:59] LABS: BILIRUBIN,TOTAL 0.2 mg/dL (0.2-1.0); CREATININE 0.8 mg/dL (0.6-1.3); POTASSIUM 4.3 mmol/L (3.5-5.1); TOTAL PROTEIN, SERUM 6.6 g/dL (6.4-8.2)
--- NOTE | 2017-02-25 14:53 | NUR ---
UR Note: ITZ faxed most recent clinicals to Nanda ESPINAL [PH: [phone]/ FAX # [phone]]. Authorization:[id number]
[2017-02-25 15:08] LABS: PHOSPHOROUS 3.6 mg/dL (2.5-4.9)
[2017-02-25 15:53] VITALS: BP 134/79
[2017-02-25 18:07] LABS: *BILIRUBIN,URIN NEGATIVE (NEGATIVE); *BLOOD, URINE NEGATIVE (NEGATIVE); *CLARITY,URINE SLIGHTLY CLOUDY (CLEAR); *COLOR,URINE YELLOW (YELLOW); *KETONES,URINE NEGATIVE (NEGATIVE); *PROTEIN,URINE NEGATIVE (NEGATIVE); *UROBILINOGEN,URINE 0.2 E.U./dl (NORMAL); LEUKOCYTE ESTERASE ,URINE NEGATIVE (NEGATIVE); NITRITE, URINE NEGATIVE (NEGATIVE); PH,URINE 5.5 (5.0-8.0); UGLUCOSE NEGATIVE (NEGATIVE)
[2017-02-25 18:13] LABS: BACTERIA,URINE FEW /HPF (NONE SEEN); RBC,URINE 0-3 /HPF (0-3); SQUAMOUS EPITHELIAL CELL,UR FEW /HPF (NONE SEEN); URINE AMORPHOUS URATE MANY /HPF; WBC,URINE 0-3 /HPF (0-3)
[2017-02-25 20:00] VITALS: BP 129/86
[2017-02-26] MEDS: LEVOTHYROXINE SODIUM 88 MCG TABLET PO SCH (06:31)
[2017-02-26] MEDS: PANTOPRAZOLE SODIUM 40 MG TABLET.DR PO SCH (06:31)
[2017-02-26 08:00] VITALS: BP 118/76
[2017-02-26] MEDS: CALCIUM CARB/VITAMIN D 600-400 MG TABLET PO SCH ×2 (09:35→17:52)
[2017-02-26] MEDS: SERTRALINE HCL 50 MG TABLET PO SCH (09:35)
[2017-02-26] MEDS: BENZTROPINE MESYLATE 1 MG TABLET PO SCH ×3 (09:35→17:52)
[2017-02-26] MEDS: MULTIVIT, IRON, MIN NO. 8, FA TABLET PO SCH (09:35)
[2017-02-26] MEDS: CHOLECALCIFEROL 1,000 UNIT TABLET PO SCH (09:35)
[2017-02-26] MEDS: CARBAMAZEPINE 100 MG TAB.CHEW PO SCH ×3 (09:36→17:52)
[2017-02-26] MEDS: chlorproMAZINE 25 MG TABLET PO SCH ×3 (09:36→17:52)
[2017-02-26] MEDS: CLONAZEPAM 0.5 MG TABLET PO SCH ×3 (09:36→17:52)
[2017-02-26] MEDS: DOCUSATE SODIUM 100 MG CAPSULE PO SCH (09:36)
[2017-02-26 12:09] LABS: CREATININE 0.9 mg/dL (0.6-1.3)
[2017-02-26] MEDS: AMPICILLIN 500 MG CAPSULE PO SCH ×2 (13:27→18:00)
--- NOTE | 2017-02-26 14:33 | NUR ---
DC Note: The patient will be discharged today back to [facility] ([facility]) [[address] [place] [address] ] via ambulance. ITZ spoke with Isabel in admissions on Friday (02/24/17) and she had stated that they will be accepting the patient today. ITZ spoke with Cheng Alves Liasophia at the facility today and she stated that they will be accepting the patient today. ITZ spoke with the patient's Boris Sharma and he is aware and agreeable with the discharge plan. The patient will follow-up at the facility with production tester Dr. Bagley and psychiatrist Dr. Beasley. ITZ spoke with JING Lema with [facility] and he stated that he has authorized the patient to be seen by Dr. Beasley. BARRIE has authorized transportation for the patient with [facility] , Auth #[id number].
--- NOTE | 2017-02-26 16:44 | NUR ---
PATIENT HAS BEEN LESS ANXIOUS TODAY UP IN WHEEL CHAIR IN FRONT OF DESK. LESS TELLING AND COMBATIVENESS NOTED , PATIENT HAND FED ATE 100% WITH [employer] . CALLED REGARDING TRANSFER TO [facility], PT SCHEDULED TO BE P/U AT 18OO VIA AMBULANCE REPORT GIVEN TO Una melara at facilityat 16 35 . waiting for pickup at 18 00
--- NOTE | 2017-02-26 18:28 | NUR ---
patient discharged to [facility] in no acute distress with all belongings and alert and awake, trans ported by ambulance two staff . facilty aware of pt coming , report to dahlia melara at 16 35 .
--- NOTE | 2017-02-27 15:17 | NUR ---
DC clinicals: ITZ faxed DC clinicals to Nanda ESPINAL [PH: [phone]/ FAX # [phone]]. Authorization:[id number]
== END 2017-02-26 18:00 | DRG 885 ==
LOC: ER 14:13 → GPS 17:33
PROVIDERS: ADMIT Psychiatry & Neurology Psychosomatic Medicine; ATTEND Psychiatry & Neurology Psychosomatic Medicine
DX: F29 Unspecified psychosis not due to a substance or known physiological condition (principal); F02.81 Dementia in other diseases classified elsewhere, unspecified severity, with behavioral disturbance; N39.0 Urinary tract infection, site not specified; R47.01 Aphasia; G31.09 Other frontotemporal neurocognitive disorder; G47.00 Insomnia, unspecified; E87.5 Hyperkalemia; E03.9 Hypothyroidism, unspecified; Z87.440 Personal history of urinary (tract) infections; Z79.899 Other long term (current) drug therapy; F32.9 Major depressive disorder, single episode, unspecified; K59.00 Constipation, unspecified; E53.9 Vitamin B deficiency, unspecified; R74.0 Nonspecific elevation of levels of transaminase and lactic acid dehydrogenase [LDH]
CPT/HCPCS: 36415; 80164; 83735; 84100; 84443; 85025; 87077; 87086; 93005; 97116; 97161; 97530; C1758; J0290; J1650; J8499; Q0161